=== PATIENT | female | born 1990 | race Caucasian/White ===

== ENCOUNTER 2021-09-24 17:35 | Emergency (ER) | payer SELFPAY ==
[2021-09-24 18:02] VITALS: BP 143/101; PULSE 94; RESP 18; TEMP 36.6; O2SAT 95; BMI 60.2
--- NOTE | 2021-09-24 18:16 | ED.GENADULT ---
HPI - General Adult General Chief complaint: Anxiety Stated complaint: Fear and Paranoia Time Seen by Provider: 09/24/21 17:45 Source: patient Mode of arrival: ambulatory Limitations: no limitations History of Present Illness HPI narrative: 30-year-old transgender patient, female to male, prefers to go by he/his and prefers to be called Tray. Comes in today status post a panic attack. States that he felt all of a sudden very paranoid that he could not trust anything or anybody. He states that this has happened 1 time in the past before. He states that he believes he has missed now 2 doses of his sertraline and likely this is what set it off. He does take clonazepam he took 1 right when this began and when I go into the room to talk to him he states that the clonazepam is kicked in and he feels significantly better. He feels that his anxiety attack is now over and he feels safe to go home and follow up with his therapist tomorrow. He states that he has online therapy that he can access at any time. He feels safe at home. He denies any thoughts of homicide or suicide. He has no other concerns today. He does not believe workup is in order and is requesting discharge. Related Data Home Medications Medication Instructions Recorded Confirmed sertraline 100 mg tablet mg 09/24/21 Allergies Allergy/AdvReac Type Severity Reaction Status Date / Time Sulfa (Sulfonamide Allergy Verified 09/24/21 18:02 Antibiotics) Review of Systems Status of ROS: Reports: 6 or more systems reviewed and unremarkable except as noted in History and below PFSH PFS Social History Smoking Status: Never smoker Do you use any of these nicotine containing products: E-Cigarettes How often do you have a drink containing alcohol: never How often do you have six or more drinks on one occasion: Never AUDIT-C Alcohol total score: 0 Non-prescribed substance use: marijuana (any form) service: No Exam Narrative: Exam Narrative: Overweight, well-developed patient in no acute distress. Alert and oriented. Answers questions appropriately. Mood and affect are appropriate. Thoughts are goal oriented and rational. No tangential or magical thinking noted. Patient speaks in full sentences without needing to catch his breath. HEENT: Normocephalic atraumatic. Pupils are equally round reactive to light. Extraocular muscles are intact. Conjunctivae are moist without any icterus noted. Extremities: Bilateral lower extremities are without edema. Skin: Well perfused without any obvious rashes. Const: Vital Signs, click to edit/add: Vital Signs - 24 hr 09/24/21 18:02 Temperature 97.8 F Pulse Rate [Left P ulse Oximeter] 94 Respiratory Rate 18 Blood Pressure [Ri ght Upper Arm] 143/101 H Pulse Oximetry 95 Course Vital Signs Vital signs: Initial Vital Signs Temperature 97.8 F 09/24/21 18:02 Temperature Source Temporal Artery Scan 09/24/21 18:02 Pulse Rate 94 09/24/21 18:02 Respiratory Rate 18 09/24/21 18:02 Blood Pressure 143/101 H 09/24/21 18:02 Blood Pressure Mean 115 09/24/21 18:02 Blood Pressure Position Sitting 09/24/21 18:02 Pulse Oximetry 95 09/24/21 18:02 Oxygen Delivery Method 09/24/21 18:02 Vital Signs Temperature 97.8 F 09/24/21 18:02 Pulse Rate 94 09/24/21 18:02 Respiratory Rate 18 09/24/21 18:02 Blood Pressure 143/101 H 09/24/21 18:02 Pulse Oximetry 95 09/24/21 18:02 Temperature 97.8 F 09/24/21 18:02 Pulse Rate 94 09/24/21 18:02 Respiratory Rate 18 09/24/21 18:02 Blood Pressure 143/101 H 09/24/21 18:02 Pulse Oximetry 95 09/24/21 18:02 Medical Decision Making MDM Narrative Medical decision making narrative: 30-year-old with anxiety and history of panic attacks. Patient again stated he was feeling significantly better and apologized for wasting our time. Stated that he will follow up with his therapist in the morning and has no other concerns today. Discharge Plan Discharge Clinical Impression: Anxiety, Panic attack Patient Disposition: Home, Self-Care Condition: Improved Additional Instructions: Recommend you follow-up with your therapist and this week. Return to the ER if you are ever feeling unsafe or have thoughts of hurting yourself or others. Prescriptions: No Action sertraline 100 mg tablet 0RF Label Comments: TAKE 2 TABLETS BY MOUTH ONCE DAILY Follow Up/Referrals: Lydia Baez MD [Primary Care Provider] - Stand Alone Forms: [employer] Info Instructions
== END 2021-09-24 18:28 | disposition home or self-care (01) ==
LOC: ED 18:26
PROVIDERS: Emergency Provider Family Medicine; PCP Family Medicine
DX: F41.9 Anxiety disorder, unspecified (principal); F41.0 Panic disorder [episodic paroxysmal anxiety]
CPT/HCPCS: 99282; 99283

== ENCOUNTER 2021-11-13 19:16 | Outpatient (CLI) | payer SELFPAY | END 2021-11-13 19:17 | disposition home or self-care (01) | LOC: AMB 11-29 11:06 | PROVIDERS: PCP Family Medicine; Visit Provider Family Medicine | DX: R07.89 Other chest pain (principal) | CPT/HCPCS: A0425; A0427 ==

== ENCOUNTER 2021-11-13 19:27 | Emergency (ER) | payer SELFPAY ==
[2021-11-13 19:38] VITALS: BP 122/83; PULSE 96; RESP 16; TEMP 35.8; O2SAT 97
--- NOTE | 2021-11-13 20:03 | CRLHL7_ITS ---
For Patients: As a result of the Century Cures Act, medical imaging exams and procedure reports are released immediately into your electronic medical record. You may view this report before your referring provider. If you have questions, please contact your health care provider. INDICATION: Chest pain. TECHNIQUE: Chest 1 views. COMPARISON: Chest x-ray from 04/30/2018. FINDINGS: Lungs: Clear lungs. No consolidation. Pleura: No pleural effusion or pneumothorax. Heart and Mediastinum: The cardiomediastinal silhouette is normal. The vessels are unremarkable. Bones: Unremarkable. IMPRESSION: No acute cardiopulmonary disease. Dictated by Rashid Yang MD @ 11/13/2021 8:51:50 PM (Electronically Signed)
--- NOTE | 2021-11-13 20:19 | ED_ITS ---
HPI - General Adult General Chief complaint: Chest Pain Stated complaint: Chest Pain Time Seen by Provider: 11/13/21 19:55 History of Present Illness HPI narrative: Patient is a 30-year-old woman who presents with substernal chest pain for the past 2 weeks. Symptoms are actually less today. No radiculopathy. No fevers, chills, nausea or diaphoresis. Pain is reproducable with palpation over the mid sternum. Pt has no history of cardiac disease. No aggrevating or aleiviating factors. Pt has no worsening with exertion. No cough. Pain is 4/10 at worst. She has taken no medication for this pain. Related Data Home Medications Medication Instructions Recorded Confirmed sertraline 100 mg tablet 100 mg PO DAILY 09/24/21 11/13/21 Allergies Allergy/AdvReac Type Severity Reaction Status Date / Time Sulfa (Sulfonamide Allergy Verified 11/13/21 19:44 Antibiotics) Review of Systems Status of ROS: Reports: 10 or more systems reviewed and unremarkable except as noted in History and below PFSH PFSH Medical History Asthma Diabetes mellitus type 2, diet-controlled PCOS (polycystic ovarian syndrome) Transgender Social History Smoking Status: Former smoker Do you use any of these nicotine containing products: E-Cigarettes Second hand tobacco smoke exposure: Yes How often do you have a drink containing alcohol: never How often do you have six or more drinks on one occasion: Never AUDIT-C Alcohol total score: 0 Non-prescribed substance use: marijuana (any form) service: No Exam Narrative: Exam Narrative: EXAM GENERAL: Patient appears comfortable and well. Obese. EYES: No scleral icterus. ENT: Tympanic membranes and oropharynx normal. THYROID: no thyroid nodules or thyromegaly. LYMPH: No supraclavicular or cervical lymphadenopathy. SKIN: Visible skin seen during exam normal or with benign process only. EXT: No dependent lower extremity pedal edema. HEART: Regular rate and rhythm with no murmurs, rubs, or gallops. LUNGS: Clear to auscultation bilaterally with no crackles or wheezes. ABD: Soft, non tender, non distended. PSYCH: Good eye contact, speech is not pressured. Const: Vital Signs, click to edit/add: Vital Signs - 24 hr 11/13/21 19:38 11/13/21 20:52 Temperature 96.5 F L Pulse Rate [Left P ulse Oximeter] 96 92 Respiratory Rate 16 16 Blood Pressure [Le ft Upper Arm] 122/83 115/85 Pulse Oximetry 97 96 Oxygen Delivery Me thod Room Air Room Air Course Course Hospital Course: EKG upon my review sinus rhythm no acute ST or T-wave changes. CBC basic metabolic panel D-dimer troponin all pending. Reevaluation(s) Reevaluation #1: Pt feeling well. Troponin, D-dimer, CBC, BMP all unremarkable as is EKG and Portable CXR upon my review. Time: 21:59 Vital Signs Vital signs: Initial Vital Signs Temperature 96.5 F L 11/13/21 19:38 Temperature Source Temporal Artery Scan 11/13/21 19:38 Pulse Rate 96 11/13/21 19:38 Respiratory Rate 16 11/13/21 19:38 Blood Pressure 122/83 11/13/21 19:38 Blood Pressure Mean 96 11/13/21 19:38 Blood Pressure Position Supine 11/13/21 19:38 Pulse Oximetry 97 11/13/21 19:38 Oxygen Delivery Method 11/13/21 19:38 Vital Signs Temperature 96.5 F L 11/13/21 19:38 Pulse Rate 96 11/13/21 19:38 Respiratory Rate 16 11/13/21 19:38 Blood Pressure 122/83 11/13/21 19:38 Pulse Oximetry 97 11/13/21 19:38 Oxygen Delivery Method 11/13/21 19:38 Temperature 96.5 F L 11/13/21 19:38 Pulse Rate 92 11/13/21 20:52 Respiratory Rate 16 11/13/21 20:52 Blood Pressure 115/85 11/13/21 20:52 Pulse Oximetry 96 11/13/21 20:52 Oxygen Delivery Method 11/13/21 20:52 Medical Decision Making [facility] Narrative Medical decision making narrative: Pt presents with several weeks of substernal chest pain. Work up is unremarkable. I did consider a 90 minute troponin but as symptoms have been present for so long and her symptoms are actually better today, I feel that work up is complete. Pt is reassured and will follow a conservative course with Tylenol, Motrin, Ice and PCP follow up. Differential Diagnosis Differential Diagnosis: AL, PE, Costrocondritis, Chest Wall Strain, Pneumonia Lab Data Labs: Lab Results 11/13/21 11/13/21 11/13/21 Range/Units 20:21 20:21 20:21 WBC 10.26 (4.50-11.00) K/uL RBC 5.09 (4.00-5.20) m/uL Hgb 14.0 (12.0-16.0) gm/dL Hct 41.3 (33.0-51.0) % MCV 81 (80-100) fL MCH 28 (26-34) pg MCHC 34 (32-36) gm/dL RDW Coeff of Kaur 12.9 (11.5-15.5) % Plt Count 318 (140-440) K/uL Neut % (Auto) 69.8 (42.0-72.0) % Lymph % (Auto) 23.7 (20-44) % [place] % (Auto) 4.2 (0.0-11.0) % Eos % (Auto) 1.7 (0.0-7.0) % Baso % (Auto) 0.4 (0.0-3.0) % Neut # (Auto) 7.17 H (1.7-7.0) K/uL Lymph # (Auto) 2.43 (0.90-2.90) K/uL [place] # (Auto) 0.40 (0.00-0.90) K/UL Eos # (Auto) 0.17 (0.00-0.50) K/uL Baso # (Auto) 0.04 (0.00-0.30) K/uL Abs Immat Gran (auto) 0.02 (0.00-0.30) K/uL D-Dimer Quant (PE/DVT) 0.32 (0.00-0.50) ug/ml Sodium 137 (135-149) mmol/L Potassium 4.0 (3.6-5.1) mmol/L Chloride 101 (96-114) mmol/L Carbon Dioxide 27 (20-32) mmol/L BUN 11 (5-24) mg/dL Creatinine 0.6 (0.5-1.5) mg/dL Estimated GFR 125 ml/min Glucose 91 (60-115) mg/dL Calcium 9.1 (8.4-10.6) mg/dL Troponin I < 0.01 L (0.01-0.04) ng/mL Discharge Plan Discharge Clinical Impression: Chest pain Condition: Stable Instructions: Chest Wall Pain (ED) Additional Instructions: Tylenol Motrin Ice Follow up with Primary Care Activity Level: No Restrictions Discharge Diet: Regular Prescriptions: No Action sertraline 100 mg tablet 100 mg PO DAILY Label Comments: TAKE 2 TABLETS BY MOUTH ONCE DAILY Follow Up/Referrals: Lydia Baez MD [Primary Care Provider] - Stand Alone Forms: [employer] Info Instructions
[2021-11-13 20:46] LABS: Basophils Absolute Auto 0.04 K/uL (0.00-0.30); Basophils Percent Auto 0.4 % (0.0-3.0); Eosinophils Absolute Auto 0.17 K/uL (0.00-0.50); Eosinophils Percent Auto 1.7 % (0.0-7.0); Hematocrit 41.3 % (33.0-51.0); Immature Granulocytes Abs Auto 0.02 K/uL (0.00-0.30); Lymphocytes Absolute Auto 2.43 K/uL (0.90-2.90); Lymphocytes Percent Auto 23.7 % (20-44); Mean Corpuscular HGB Conc 34 gm/dL (32-36); Mean Corpuscular Hemoglobin 28 pg (26-34); Mean Corpuscular Volume 81 fL (80-100); Monocytes Percent Auto 4.2 % (0.0-11.0); Neutrophils Absolute Auto 7.17 K/uL (1.7-7.0); Neutrophils Percent Auto 69.8 % (42.0-72.0); Platelet Count* 318 K/uL (140-440); RDW Coefficient of Variation % 12.9 % (11.5-15.5); Red Blood Count 5.09 m/uL (4.00-5.20); White Blood Count* 10.26 K/uL (4.50-11.00)
[2021-11-13 20:52] VITALS: BP 115/85; PULSE 92; RESP 16; O2SAT 96
[2021-11-13 20:56] LABS: Slide Review Reflex No
[2021-11-13 21:31] LABS: Chloride* 101 mmol/L (96-114)
[2021-11-13 21:32] LABS: Sodium* 137 mmol/L (135-149)
[2021-11-13 21:34] LABS: Creatinine* 0.6 mg/dL (0.5-1.5); Estimated Glomerular Filt Rate 125 ml/min
[2021-11-13 21:35] LABS: Blood Urea Nitrogen* 11 mg/dL (5-24); Calcium* 9.1 mg/dL (8.4-10.6); Carbon Dioxide* 27 mmol/L (20-32); Glucose* 91 mg/dL (60-115)
[2021-11-13 21:37] LABS: D Dimer Quantitative* 0.32 ug/ml (0.00-0.50)
[2021-11-13 21:47] LABS: Troponin I* < 0.01 ng/mL (0.01-0.04)
== END 2021-11-13 22:10 | disposition home or self-care (01) ==
PROVIDERS: Emergency Provider Internal Medicine; PCP Family Medicine
DX: R07.9 Chest pain, unspecified (principal)
CPT/HCPCS: 36415; 71045; 80048; 84484; 85025; 85379; 93005; 99283; 99284

== ENCOUNTER 2022-01-10 22:09 | Emergency (ER) | payer SELFPAY ==
[2022-01-10 22:34] VITALS: BP 142/95; PULSE 103; RESP 20; TEMP 35.6; O2SAT 96; BMI 60.2
--- NOTE | 2022-01-10 23:31 | CRLHL7_ITS ---
For Patients: As a result of the Cures Act, medical imaging exams and procedure reports are released immediately into your electronic medical record. You may view this report before your referring provider. If you have questions, please contact your health care provider. Indication: Trauma. Technique: Left knee, 3 views. Comparison: November 20, 2019. Findings: Bones: Alignment is normal. No fractures or bone lesions. Joint spaces: Small suprapatellar effusion. [id number] global degenerative changes.. Soft tissues: Unremarkable. Impression: No acute fractures or dislocations. Mild to moderate degenerative changes. Small suprapatellar effusion. Dictated by Sue Hillman MD @ 01/11/2022 12:02:59 AM (Electronically Signed)
--- NOTE | 2022-01-10 23:57 | ED.LOWEXIN ---
HPI - Extremity Injury (Lower) General Chief Complaint: Extremity Pain/Injury, Lower Stated Complaint: hurt lft knee, big toe is numb Time Seen by Provider: 01/10/22 23:26 History of Present Illness HPI Narrative: 31-year-old emergency department with complaint of left knee pain. 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 Stepped this evening sideways, nothing big, and there was a sudden pop feeling like the knee exploded. Is able to bear weight with knee straight but it hurts. Recalls couple years ago injury to the same knee. Reports that there had been some sort of a chip identified in the knee. Was in a knee splint of some sort would hope not do it again; sounds like it might have been a knee immobilizer. Does not describe problems with the knee otherwise. No other injuries sustained. Review of records reveals an injury sustained about 2 years ago to the left knee while squatting at work. MRI report is reviewed as transcribed in orthopedic note IMAGING: MRI of report on the left knee from [facility] dated 12/17/2019 is reviewed. This shows a small full-thickness articular cartilage defect over the posterior aspect of the medial femoral condyle, full-thickness fissuring and delamination of the articular cartilage over the lateral tibial plateau. There is lateral subluxation of the patella. The cruciate and collateral ligaments are normal. Menisci are normal. ASSESSMENT: Flare up of Left knee osteoarthritis Related Data Allergies Allergy/AdvReac Type Severity Reaction Status Date / Time Sulfa (Sulfonamide Allergy Verified 01/10/22 22:37 Antibiotics) Review of Systems Status of ROS: Reports: 6 or more systems reviewed and unremarkable except as noted in History and below PFSH PFSH Medical History Asthma Diabetes mellitus type 2, diet-controlled PCOS (polycystic ovarian syndrome) Transgender Social History Smoking Status: Former smoker Do you use any of these nicotine containing products: E-Cigarettes Second hand tobacco smoke exposure: Yes How often do you have a drink containing alcohol: never How often do you have six or more drinks on one occasion: Never AUDIT-C Alcohol total score: 0 Non-prescribed substance use: marijuana (any form) service: No Exam Narrative: Exam Narrative: Pleasant. Lying flat in bed. Pillow underneath the left leg/knee. At rest is not uncomfortable. There is no apparent effusion but the tenderness most present in the superior medial aspect of patella. Not exactly apprehensive. Moderately uncomfortable to varus stressor of the knee. No laxity to varus or valgus stressors. Negative Angela's. No lower extremity edema otherwise. Const: Vital Signs, click to edit/add: Vital Signs - 24 hr 01/10/22 22:34 Temperature 96.0 F L Pulse Rate [Left P ulse Oximeter] 103 H Respiratory Rate 20 Blood Pressure [Ri ght Forearm] 142/95 H Pulse Oximetry 96 Oxygen Delivery Me thod Room Air Documenting provider has reviewed patient's vital signs: yes Course Course Hospital Course: My read of three-view knee x-ray looks like degenerative changes Impression: No acute fractures or dislocations. Mild to moderate degenerative changes. Small suprapatellar effusion. Reevaluation(s) Reevaluation #1: He did not feel he wanted pain medication. Placed in the immobilizer. Have crutches at home. Vital Signs Vital signs: Initial Vital Signs Temperature 96.0 F L 01/10/22 22:34 Temperature Source Temporal Artery Scan 01/10/22 22:34 Pulse Rate 103 H 01/10/22 22:34 Respiratory Rate 20 01/10/22 22:34 Blood Pressure 142/95 H 01/10/22 22:34 Blood Pressure Mean 110 01/10/22 22:34 Blood Pressure Position Sitting 01/10/22 22:34 Pulse Oximetry 96 01/10/22 22:34 Oxygen Delivery Method 01/10/22 22:34 Vital Signs Temperature 96.0 F L 01/10/22 22:34 Pulse Rate 103 H 01/10/22 22:34 Respiratory Rate 20 01/10/22 22:34 Blood Pressure 142/95 H 01/10/22 22:34 Pulse Oximetry 96 01/10/22 22:34 Oxygen Delivery Method 01/10/22 22:34 Temperature 96.0 F L 01/10/22 22:34 Pulse Rate 103 H 01/10/22 22:34 Respiratory Rate 20 01/10/22 22:34 Blood Pressure 142/95 H 01/10/22 22:34 Pulse Oximetry 96 01/10/22 22:34 Oxygen Delivery Method 01/10/22 22:34 MDM - Extremity Injury (Lower) MDM Narrative Medical decision making narrative: I suspect some degree of patellar subluxation occurred here in the setting of degenerative changes. Medical Records Attestation: I reviewed the patient's medical records. Discharge Plan Discharge Clinical Impression: Subluxation, Anterior knee pain Patient Disposition: Home w/ Parent or Adult Condition: Stable Additional Instructions: Can take ibuprofen or acetaminophen. Alternative to the ibuprofen may be up to 500 mg naproxen 2 times daily. Rest by using the knee immobilizer when up and about. If too uncomfortable go ahead and use your crutches as well. I would dust off those exercises and start doing them again. Ice as discussed to 3 times daily over the next few days. Follow-up if not improved after the weekend. Follow Up/Referrals: Lydia Baez MD [Primary Care Provider] - Stand Alone Forms: [employer] Info Instructions
== END 2022-01-11 00:37 | disposition home or self-care (01) ==
PROVIDERS: Emergency Provider Family Medicine; PCP Family Medicine
DX: S83.192A Other subluxation of left knee, initial encounter (principal)
CPT/HCPCS: 73562; 99283

== ENCOUNTER 2022-03-06 18:03 | Emergency (ER) | payer SELFPAY ==
[2022-03-06 18:16] VITALS: BP 164/104; PULSE 103; RESP 18; TEMP 36.6; O2SAT 97; BMI 57.6
--- NOTE | 2022-03-06 19:21 | ED.NURSE ---
pt signed refusal of services from lobby,
== END 2022-03-06 19:17 | disposition left against medical advice (07) ==
PROVIDERS: Emergency Provider Family Medicine; PCP Family Medicine
DX: Z53.21 Procedure and treatment not carried out due to patient leaving prior to being seen by health care provider (principal)

== ENCOUNTER 2022-06-20 14:45 | Outpatient (CLI) | payer OTHER, SELFPAY ==
[2022-06-20 18:53] LABS: Chlamydia DNA Amplified* NOT DETECTED (No Detected); GC DNA Amplified* NOT DETECTED (No Detected)
== END 2022-06-20 14:46 | disposition home or self-care (01) ==
PROVIDERS: PCP Family Medicine; Visit Provider Registered Nurse
DX: N93.9 Abnormal uterine and vaginal bleeding, unspecified (principal)
CPT/HCPCS: 0353U; 84443; 87491; 87591

== ENCOUNTER 2022-06-22 15:45 | Outpatient (CLI) | payer OTHER, SELFPAY ==
--- NOTE | 2022-06-22 16:00 | CRLHL7_ITS ---
For Patients: As a result of the Century Cures Act, medical imaging exams and procedure reports are released immediately into your electronic medical record. You may view this report before your referring provider. If you have questions, please contact your health care provider. INDICATION: Abnormal uterine bleeding COMPARISON: 11/10/2019 TECHNIQUE: 2D gale scale and color Doppler images were acquired of the pelvis using a transabdominal and transvaginal approach. FINDINGS: Sonographic images demonstrate a normal size and smooth outer contour of the uterus. Uterus measures 7.9 cm in length by 4.2 cm in AP diameter by 4.7 cm in transverse dimension. The myometrium has a normal uniform echotexture. The endometrial lining measures 16 mm in composite thickness. The right ovary is not visualized and the left ovary measures 11.4 x 7.8 x 6.6 cm. The left ovary demonstrates normal arterial and venous blood flow on color Doppler analysis. Large simple left ovarian cyst is present measuring 11.4 x 7.2 x 6.3 cm. There are no suspicious fluid collections within the cul-de-sac. IMPRESSION: Large left ovarian cyst measuring 11.6 cm, increased in size compared to the prior exam when it measured 6.4 cm. Dictated by Maximiliano Spencer MD @ 06/24/2022 12:33:01 PM (Electronically Signed)
== END 2022-06-22 15:46 | disposition home or self-care (01) ==
LOC: US 15:46
PROVIDERS: Visit Provider Registered Nurse
DX: N93.9 Abnormal uterine and vaginal bleeding, unspecified (principal); N83.202 Unspecified ovarian cyst, left side
CPT/HCPCS: 76830; 76856

== ENCOUNTER 2023-05-06 05:38 | Emergency (ER) | payer OTHER, SELFPAY ==
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
--- NOTE | 2023-05-06 05:43 | US_ITS ---
Patient: AJAY MISTRY Facility:?[facility] Patient ID:?[id number] Site Patient ID:?[id number]. Site :?[id number] Study:?US-Pelvis PELVIS TV-05/06/2023 7:08:47 AM Ordering Physician:?NAMAN REYNOLDS Final Report: Indication: Abnormal bleeding Technique: Transvaginal sonographic evaluation of the pelvis was performed. Grayscale and Doppler imaging was acquired. Comparison: 11/10/2019 Findings: The uterus is normal in size measuring 9.6 x 4.4 x 5.2 centimeters. Nabothian cysts are noted in the cervix. The endometrium is prominent at 1.7 centimeters and somewhat heterogeneous in appearance. Follow-up evaluation of the endometrium is recommended due to its size, heterogeneity and the presence of abnormal bleeding. The right ovary is not visualized. No right adnexal mass The left ovary is enlarged measuring 12.4 x 8.9 x 9.0 centimeters. This is almost entirely replaced by a large cyst measuring 12.4 x 9.0 x 8.1 centimeter. This cyst is about twice the size that it was in 2020. There is no evidence of torsion. Due to the risk of rupture and torsion with a lesion of this size, this should undergo follow-up evaluation as well Impression: 1. Prominent heterogeneous endometrium. In the setting of abnormal bleeding, further evaluation of the endometrium is recommended. 2. Left ovarian cyst about twice the size that was in 2020. There is no evidence of torsion at this time. Due to the change in size and the risk of rupture and torsion, follow up evaluation of the left ovary is also recommended. 3. The right ovary is not visible. No right adnexal mass. 4. Incidental nabothian cysts in the cervix. Dictated by Gian Schmitt MD @ 05/06/2023 7:34:01 AM Signed by:?Gian Schmitt MD @05/06/2023 7:34:01 AM (Electronic Signature)
[2023-05-06 05:48] VITALS: BP 170/85; PULSE 105; RESP 22; TEMP 36.7; O2SAT 99; BMI 63.8
[2023-05-06 06:02] VITALS: BP 132/87; PULSE 102; RESP 20; O2SAT 93
[2023-05-06 06:02] LABS: Basophils Percent Auto 0.3 % (0.0-3.0); Eosinophils Percent Auto 1.9 % (0.0-7.0); Hemoglobin* 13.2 gm/dL (12.0-16.0); Immature Granulocytes Pct Auto 0.7 %; Lymphocytes Percent Auto 31.9 % (20-44); Mean Corpuscular HGB Conc 33 gm/dL (32-36); Mean Corpuscular Hemoglobin 27 pg (26-34); Mean Corpuscular Volume 83 fL (80-100); Monocytes Percent Auto 4.7 % (0.0-11.0); Neutrophils Percent Auto 60.5 % (42.0-72.0); Platelet Count* 326 K/uL (140-440); RDW Coefficient of Variation % 13.3 % (11.5-15.5); Red Blood Count 4.82 m/uL (4.00-5.20); White Blood Count* 13.12 K/uL (4.50-11.00)
[2023-05-06 06:05] LABS: Slide Review Reflex No
[2023-05-06 06:15] VITALS: PULSE 100; O2SAT 95
[2023-05-06 06:30] VITALS: PULSE 99; O2SAT 96
[2023-05-06 06:48] LABS: HCG Qualitative Serum* Negative (Negative)
[2023-05-06 07:14] VITALS: BP 141/92
== END 2023-05-06 07:54 | disposition home or self-care (01) ==
PROVIDERS: Emergency Provider Family Medicine
DX: N83.209 Unspecified ovarian cyst, unspecified side (principal); N93.9 Abnormal uterine and vaginal bleeding, unspecified
CPT/HCPCS: 36415; 76830; 84703; 85025; 93976; 99284

== ENCOUNTER 2023-06-28 15:45 | Outpatient (CLI) | payer OTHER, SELFPAY | END 2023-06-28 15:46 | disposition home or self-care (01) | PROVIDERS: Visit Provider Registered Nurse | DX: Z13.220 Encounter for screening for lipoid disorders (principal); R79.89 Other specified abnormal findings of blood chemistry | CPT/HCPCS: 80061; 84270; 84402; 84403; 84450; 84460 ==

== ENCOUNTER 2023-07-30 09:39 | Outpatient (CLI) | payer OTHER, SELFPAY | END 2023-07-30 09:40 | disposition home or self-care (01) | PROVIDERS: PCP Internal Medicine; Visit Provider Internal Medicine | DX: I10 Essential (primary) hypertension (principal); Z13.220 Encounter for screening for lipoid disorders | CPT/HCPCS: 80053; 80061 ==

== ENCOUNTER 2023-09-13 15:41 | Outpatient (CLI) | payer OTHER, SELFPAY | END 2023-09-13 15:42 | disposition home or self-care (01) | PROVIDERS: PCP Internal Medicine; Visit Provider Registered Nurse | DX: F64.9 Gender identity disorder, unspecified (principal); I10 Essential (primary) hypertension; Z78.9 Other specified health status | CPT/HCPCS: 84270; 84402; 84403; 84460 ==

== ENCOUNTER 2023-10-21 19:05 | Emergency (ER) | payer OTHER, SELFPAY ==
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
[2023-10-21 19:17] VITALS: BP 136/77; PULSE 118; RESP 20; TEMP 37; O2SAT 94; BMI 64.7
--- NOTE | 2023-10-21 19:28 | CRLHL7_ITS ---
For Patients: As a result of the Century Cures Act, medical imaging exams and procedure reports are released immediately into your electronic medical record. You may view this report before your referring provider. If you have questions, please contact your health care provider. INDICATION: Lower abdominal pain TECHNIQUE: Abdomen Pelvis radiograph 4 views COMPARISON: None FINDINGS: The sensitivity and specificity of the exam are severely limited by the patient`s body habitus. Bowel: The bowel gas pattern is normal without evidence of bowel obstruction. Soft tissue: No evidence of pneumoperitoneum present. There is a 4 mm calcification in the left pelvis. Bone: Unremarkable for age. IMPRESSION: 1. There is a 4 mm calcification in the left pelvis. This may be a phlebolith but correlation with history and urinalysis are recommended to exclude a distal ureteral stone. Dictated by: Jorge Alonzo MD @ 10/21/2023 20:13:56 (Electronically Signed)
--- NOTE | 2023-10-21 20:16 | ED_ITS ---
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 mg tablet 500 mg PO BID 7 Days Qty: 14 0RF No Action Nexplanon 68 mg implant 1 implant subdermal ONCE Rx Instructions: as a single dose (DME) Aqinject Standard Needle 18 gauge x 1 /2 needle See Rx Instructions .Route Qty: 100 0RF Rx Instructions: As directed (DME) BD Regular Bevel [place] 25 gauge x 5/8 needle See Rx Instructions .Route Qty: 100 0RF Rx Instructions: As directed meloxicam 7.5 mg tablet 7.5 mg PO QDAY Qty: 30 3RF albuterol sulfate 90 mcg/actuation HFA aerosol inhaler 2 puff inhalation Q4-6H PRN (Reason: shortness of breath or wheezing) Qty: 8.5 3RF testosterone cypionate 100 mg/mL oil 50 mg subcut QWEEK Qty: 10 0RF Follow Up/Referrals: Kavin Trejo MD [Primary Care Provider] - Stand Alone Forms: [facility] Info Instructions
[2023-10-21 20:23] VITALS: O2SAT 98
[2023-10-21 20:36] LABS: HCO3 VBG 30 mmol/L (21-28); Lactate* 1.5 mmol/L (0.5-1.9); PCO2 VBG 49 mmHG (40-50); PO2 VBG < 30.1 mmHG (25-47); pH VBG 7.394 (7.32-7.43)
[2023-10-21 20:40] LABS: Basophils Percent Auto 0.2 % (0.0-3.0); Eosinophils Percent Auto 0.5 % (0.0-7.0); Hemoglobin* 12.2 gm/dL (12.0-16.0); Immature Granulocytes Pct Auto 0.3 %; Lymphocytes Percent Auto 11.2 % (20-44); Mean Corpuscular HGB Conc 29 gm/dL (32-36); Mean Corpuscular Hemoglobin 22 pg (26-34); Mean Corpuscular Volume 76 fL (80-100); Monocytes Percent Auto 6.4 % (0.0-11.0); Neutrophils Percent Auto 81.4 % (42.0-72.0); Platelet Count* 347 K/uL (140-440); RDW Coefficient of Variation % 16.3 % (11.5-15.5); Red Blood Count 5.52 m/uL (4.00-5.20); White Blood Count* 17.27 K/uL (4.50-11.00)
[2023-10-21 20:49] LABS: Slide Review Reflex No
--- NOTE | 2023-10-21 20:52 | CRLHL7_ITS ---
For Patients: As a result of the Century Cures Act, medical imaging exams and procedure reports are released immediately into your electronic medical record. You may view this report before your referring provider. If you have questions, please contact your health care provider. Indication: Abdominal pain Technique: CT through the abdomen and pelvis following 149 mL Isovue 370 IV contrast Comparison: CT abdomen pelvis performed 01/08/2019 Findings: Lower chest: No acute abnormality appreciated. Hepatobiliary: No significant parenchymal abnormality is appreciated. Spleen: Mild splenomegaly. Pancreas: No acute abnormality appreciated. Adrenal glands: Increased size of an indeterminate density left adrenal gland lesion measuring 2.2 centimeters, previously 1.3 centimeters. Kidneys: Dusky hypoenhancement of the right greater than left kidneys with perinephric and periureteral stranding. Bowel: No obstruction. No focal perienteric or pericolonic stranding is appreciated. The appendix is visualized and appears unremarkable. Vascular: No acute abnormality appreciated. Lymph nodes: No gross lymphadenopathy. Peritoneum: No free air. No free fluid. : Increased size of a cystic and solid left ovarian/adnexal lesion measuring 12.9 centimeters, previously 7.6 centimeters. Soft tissues: No acute abnormality appreciated. Bones: No acute fracture. No lytic or blastic lesion. Impression: 1. Findings suspicious for bilateral pyelonephritis. 2. Increased size of a cystic and solid left adnexal/ovarian lesion measuring 12.9 centimeters, previously 7.6 centimeters. Ultrasound could be considered if there is clinical suspicion for torsion. Otherwise, gynecologic surgical referral would be recommended. 3. Increased size of an indeterminate density left adrenal gland lesion measuring 2.2 centimeters, previously 1.3 centimeters. Nonemergent outpatient adrenal protocol CT or MRI recommended for further evaluation. Please note that all CT scans at this facility use dose modulation, iterative reconstruction, and/or weight-based dosing when appropriate to reduce radiation dose to as low as reasonably achievable. Dictated by Ramiro Sutherland MD @ 10/21/2023 10:44:59 PM (Electronically Signed)
[2023-10-21 20:55] LABS: Albumin* 4.3 g/dL (3.3-5.0); Chloride* 99 mmol/L (96-114); Sodium* 135 mmol/L (135-149)
[2023-10-21 20:56] LABS: Potassium* 3.9 mmol/L (3.6-5.1)
[2023-10-21 20:58] LABS: Anion Gap 6 mEq/L (7-15); Aspartate Amino Transferase* 19 U/L (12-35); Bilirubin Direct* 0.4 mg/dL (0.0-0.5); Bilirubin Total* 0.8 mg/dL (0.1-1.5); Blood Urea Nitrogen* 7 mg/dL (5-24); Carbon Dioxide* 30 mmol/L (20-32); Creatinine* 0.7 mg/dL (0.5-1.5); Est. Creatinine Clearance* 97.21; Estimated Glomerular Filt Rate 119 ml/min; Total Protein* 8.3 g/dL (6.0-8.3)
[2023-10-21 20:59] LABS: Alanine Aminotransferase* 21 U/L (4-35); Alkaline Phosphatase* 88 U/L (40-150); Glucose* 115 mg/dL (60-115); Lipase* 64 U/L (23-300); Magnesium* 2.2 mg/dL (1.5-2.6)
[2023-10-21 21:06] LABS: Appearance Urine Clear (Clear); Bilirubin Urine Negative (Negative); Blood Urine 3+ (Negative); Color Urine Yellow (Yellow); Glucose Urine Negative (Negative); Ketones Urine Negative (Negative); Leukocyte Esterase Urine 1+ (Negative); Nitrite Urine Negative (Negative); Protein Urine 2+ (Negative); Specific Gravity Urine 1.015 (1.000-1.030)
[2023-10-21 21:48] LABS: Ur HCG Qualitative* Negative (Negative)
[2023-10-21] MEDS: 0.9 % SODIUM CHLORIDE 1000 ml 1,000 ML IV (22:09)
[2023-10-21 22:16] VITALS: BP 129/79; PULSE 120; RESP 18; O2SAT 99
[2023-10-21] MEDS: cefTRIAXone 1 GM in 0.9 % SODIUM CHLORIDE Mini-bag 100 ML IVPB (23:04)
[2023-10-21] MEDS: MORPHINE 2 MG/ML inj IVP (23:08)
== END 2023-10-21 23:43 | disposition home or self-care (01) ==
PROVIDERS: Emergency Provider Family Medicine; PCP Internal Medicine
DX: N12 Tubulo-interstitial nephritis, not specified as acute or chronic (principal); R00.0 Tachycardia, unspecified; N83.202 Unspecified ovarian cyst, left side; E27.9 Disorder of adrenal gland, unspecified
CPT/HCPCS: 36415; 74019; 74177; 80048; 80076; 81001; 81025; 82803; 83605; 83690; 83735; 85025; 86140; 87086; 93005; 94761; 96365; 96375; 99284; 99285; J0696; J2270; J7030; Q9967

== ENCOUNTER 2023-12-12 14:05 | Outpatient (CLI) | payer OTHER, SELFPAY ==
--- NOTE | 2023-12-12 14:30 | MR_ITS ---
[facility] [address] [facility] [address] Phone:?[phone] Fax:?[phone] Referring Physician Information: Kavin Trejo M.D. [address] [facility] [address] Phone:?[phone] Fax:?[phone] Patient:Faby Alvarado D.O.B:?1990 Sex:?Female Phone:?[phone] [facility] MRN:?[id number] Exam Date:?12/12/2023 EXAM: MRI of the LEFT SHOULDER, without contrast CLINICAL: Left shoulder pain and decreased range of motion. COMPARISONS: None available. TECHNICAL: Multiplanar multisequence MRI of the left shoulder was obtained. SEDATION: None. CONTRAST: None. FINDINGS: Evaluation of the obtained sequences is relatively limited by artifact and patient positioning limitations. Rotator cuff: Supraspinatus/Infraspinatus: No evidence of tendinosis, tear or atrophy as visualized. Teres minor: No evidence of tendinosis, tear or atrophy as visualized. Subscapularis: No evidence of tendinosis, tear or atrophy as visualized. Bursae: Subacromial-subdeltoid: No significant bursal fluid. Subcoracoid: No significant bursal fluid. Coracoacromial arch: Acromion morphology: Type I. No os acromiale. Acromiohumeral space: Within normal limits. Coracohumeral space: Within normal limits. Biceps tendon, long head: Evaluation of the intra-articular tendon is significantly limited by positioning and artifact. Imaged proximal extra- articular tendon appears intact. Glenohumeral joint: Physiologic volume of joint fluid. Articular cartilage: Evaluation is significantly limited by artifact. Capsule: No convincing evidence of capsular thickening or injury. Labrum: Not able to be well evaluated due to prominent artifact. Bones: Evaluation is limited by artifact. No evidence of fracture or dislocation as visualized. Acromioclavicular joint: Mild changes of arthrosis. No AC joint injury/widening. IMPRESSION: 1. Evaluation is limited by patient positioning limitations and prominent artifact. No evidence of rotator cuff tear as visualized. 2. Mild AC joint arthrosis. JCZ Electronically signed on 12/13/2023 10:50:00 AM by Santiago Sidhu D.O.
== END 2023-12-12 14:06 | disposition home or self-care (01) ==
LOC: MRI 14:06
PROVIDERS: PCP Internal Medicine; Visit Provider Internal Medicine
DX: M25.512 Pain in left shoulder (principal); M19.012 Primary osteoarthritis, left shoulder
CPT/HCPCS: 73221

== ENCOUNTER 2024-01-15 16:58 | Outpatient (CLI) | payer OTHER, SELFPAY | END 2024-01-15 16:59 | disposition home or self-care (01) | LOC: AMB 01-22 23:48 | PROVIDERS: PCP Internal Medicine; Visit Provider Emergency Medicine | DX: R45.851 Suicidal ideations (principal); F41.9 Anxiety disorder, unspecified | CPT/HCPCS: A0425; A0429 ==

== ENCOUNTER 2024-01-15 17:17 | Emergency (ER) | payer OTHER, SELFPAY ==
[2024-01-15 17:22] VITALS: BP 171/101; PULSE 124; RESP 22; TEMP 36.8; O2SAT 98; BMI 68.6
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
[2024-01-15] MEDS: LORazepam 1 MG TABLET PO (17:49)
== END 2024-01-15 19:02 | disposition home or self-care (01) ==
LOC: ED 18:28
PROVIDERS: Emergency Provider Emergency Medicine Emergency Medical Services; PCP Internal Medicine
DX: F41.9 Anxiety disorder, unspecified (principal)
CPT/HCPCS: 99283; 99284; A9270

== ENCOUNTER 2024-01-17 09:01 | Outpatient (RCR) | payer OTHER, SELFPAY ==
--- NOTE | 2024-01-17 18:37 | PT.OPEX ---
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 States having to push open some heavy rodrigues as part of their work duties. Patient injured the L shoulder at work on Nov 04 reaching around to push the gait. Reports going to the Urgent Care Clinic a few days after the injury. They felt there was some inflammation, give it time to resolve. Patient had ongoing pain, limited use of their L shoulder. Patient followed up with PCP, Dr Trejo. Patient states due to ongoing pain and limited motion, MD recommended a sling for their L UE and an MRI was ordered. MRI showed AC joint issue per patient report. Patient reports having work restrictions but states they continues to do normal work duties to open the gate which needs to be done to perform their normal work duties. Patient takes meloxicam regularly for chronic pain and feels this is also helping the L shoulder pain. Was using ice on occasion but not as much any more. Complains of ongoing pain and limited ROM due to pain. Pain range 0 -9/10. Date of Last Physician Visit 12/18/23 Occupation Patient reports having work restrictions but unable to recall specifics. Patient continues to open the heavy gate as part of their work duties. Precautions Treatment Precautions/Contraindications DM, depression/anxiety, resp issues, PTSD, ASD, obesity Objective Functional Test Performed & Score SPADI pain score 34/50 for 68% . SPADI disability score 57/ 80 for 71%. TOTAL SPADI score 91/130 QuickDASH disability/sx score 57%. QuickDASH work module score 75%. Assessment Assessment/Impression Patient is a 33 year old reporting L shoulder work related injury on Nov 04 with reaching around with L shoulder/UE to open a heavy gate at work. Patient continues to report L shoulder pain, impaired L shoulder ROM , and limited tolerance for lifting/reaching/use of L shoulder/UE secondary to pain. Pain range 0-9/10. Patient takes meloxicam regularly for chronic pain and feels this is also helping decrease L shoulder pain. Patient very protective of any movement of L shoulder. L shoulder AROM initially quite limited with flex to approx 100 degrees. Able to loosen up L shoulder with some exercises including codmans, shoulder rolls, and use of pulleys. L shoulder AROM after loosening up with exercises: flex 135 degrees, scap 130 degrees, IR with L hand to back of L hip, ER with L hand to top of hand. Patient reports pain with all L shoulder motion. L shoulder AAROM on pulleys with 150 degrees flex - equal to R shoulder flex using the paul . Strength testing deferred this session as patient had difficulty with L shoulder AROM. Reviewed MRI results with patient - pulled up from medical record. MRI shows mild AC joint arthrosis. Encouraged patient to get L shoulder moving to help loosen up motion and return to normal function. With encouragement and reassurance, patient was more comfortable moving L shoulder and did well with PT exercises. Patient set up with a HEP. Patient will try to use L shoulder/UE more with daily/work activities as able. Patient would benefit from skilled PT for pain/sx management, improved L shoulder ROM, return to full functional use of L shoulder/UE, and establishment of HEP. Plan of Care Rehabilitation Potential Good Physical Therapy Goals 1. Decrease L shoulder pain to less than/equal to 3/10 with daily/work activities and with the progression of PT activities over the next 4-6 weeks. 2. Return to L shoulder AROM WFL and pain free within 4-6 weeks for return to daily/work activities without flare up of pain. 3. Patient will be educated on posture and body mechanics over the next 4-6 weeks for decreased stress to UBN/shoulder region, improved shoulder mechanics, and decreased shoulder pain. 4. Improve L shoulder strength over the next 6-8 weeks for return to PLF with daily/work activities without flare up of pain. 5. Patient will be I with HEP within 8 weeks for progression toward above goals, ongoing self management of pain/sx, ongoing self improvements in posture/shoulder strength/ mechanics, and for return to PLF with daily/work activities without flare up of pain. Coordination/Communication With Referral Source Treatment Plan/Direct Interventions Manual Therapy,Therapeutic Exercises Frequency/Duration 6-8 visits Patient Will Be Discharged From Therapy Completion of LTG(s),Skills Plateau,Independent w/HEP, Independently Progressing Evaluation Billing Untimed Code Treatment Minutes 25 Complexity Moderate Certification Information Initial Certification Date 01/17/24 Ending Certification Date 04/16/24 Provider Signature Required Yes Provider Signature Shows Agreement With POC & Medical Necessity Physician NPI Number Write NPI# Here Physician Comment/Change : Physician Signature & Date Requested Please Sign/Date Here
== END 2024-05-16 23:59 | disposition home or self-care (01) ==
PROVIDERS: PCP Internal Medicine; Visit Provider Internal Medicine
DX: S49.92XA Unspecified injury of left shoulder and upper arm, initial encounter (principal); M25.512 Pain in left shoulder; M25.612 Stiffness of left shoulder, not elsewhere classified; Z51.89 Encounter for other specified aftercare
CPT/HCPCS: 97110; 97162

== ENCOUNTER 2024-04-10 16:10 | Outpatient (CLI) | payer OTHER, SELFPAY | END 2024-04-10 16:11 | disposition home or self-care (01) | LOC: NFLDREF 16:13 | PROVIDERS: PCP Internal Medicine; Visit Provider Registered Nurse | DX: F64.9 Gender identity disorder, unspecified (principal) | CPT/HCPCS: 84270; 84402; 84403 ==

== ENCOUNTER 2024-06-12 14:45 | Outpatient (RCR) | payer OTHER, SELFPAY ==
--- NOTE | 2024-05-22 14:59 | PT.OPEX ---
PT [place] Outpatient Eval PT [facility] Outpatient Eval Start: 05/15/24 10:48 Freq: Status: Active Protocol: Document 05/22/24 13:57 CRP (Rec: 05/22/24 14:56 CRP [id number]) E-signed By Jordan Ray PT Physical Therapy Outpatient Evaluation Insurance Information Recert Due Date 08/20/24 Insurance Name Ros Medical Diagnosis Back Pain Referring MD Dr Trejo Subjective Preferred Name Tray Subjective About 2 years ago began having L sided LBP. Only discomfort sitting. Can find some positions lying down that calm the pain down. Pain is most painful standing in one place. Within min or two she has severe pain standing. Walking is still an issue by 2 minutes but not as much. Has not been able to exer. At one time it was bad enough she needed to get a wheelchair. Will use the WC if she needs to be out and about a lot without any scooter option being available. No pain into the legs but can get a little shaky. No numbness or tingling. 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 Lower lumbar increased lordosis - Unable to tolerate supine lying Trunk ROM: flex WNL, Ext jerrod dec with L LBP, R SB min dec, L SB mod dec with pain. BIlat rot mod dec. Segmental testing: L SL- hypomob lower lumbar spine and TL junction Functional Test Performed & Score Oswestry 56 Assessment Assessment/Impression Pt presents to the clinic with long standing issues of LBP. Pts signs and sxs are consistent with mechanical LBP characterized by nociceptive pain mechanisms. Pt shows poor tolerance to extension biased functional activity and exer. With this, the pt does show a preference for facet opening activity. Skilled PT is necessary to incorporate ther ex, nm anna, manual therapy and pt education to decrease pain and improve functional mobility. Primary Functional Limitations Standing Walking Recreational activity Exercise ticket sales agent Plan of Care Rehabilitation Potential Good Physical Therapy Goals 1. Pt will be independent with HEP in 8 weeks. 2. Pt will walk for exer x 20 minutes with 75% decrease in pain in 10 weeks. 3. Pt will complete 45 minutes of director of architecture with 75% decrease in pain in 12 weeks. Coordination/Communication With Referral Source Treatment Plan/Direct Interventions Manual Therapy,Neuromuscular Re-ed,Self-Care/Home Management,Therapeutic Activities,Therapeutic Exercises Frequency/Duration 1-2x/wk for 12 weeks Patient Will Be Discharged From Therapy Completion of LTG(s),Skills Plateau,Independent w/HEP, Independently Progressing Evaluation Billing Untimed Code Treatment Minutes 30 Complexity Moderate Certification Information Initial Certification Date 05/22/24 Ending Certification Date 08/20/24 Provider Signature Required Yes Provider Signature Shows Agreement With POC & Medical Necessity Physician NPI Number Write NPI# Here Physician Comment/Change : Physician Signature & Date Requested Please Sign/Date Here
== END 2024-08-20 09:15 | disposition home or self-care (01) ==
PROVIDERS: PCP Internal Medicine; Visit Provider Internal Medicine
DX: M54.9 Dorsalgia, unspecified (principal); Z51.89 Encounter for other specified aftercare
CPT/HCPCS: 97110; 97140; 97162; 97163

== ENCOUNTER 2024-08-16 20:25 | Emergency (ER) | payer OTHER, SELFPAY ==
--- OUTSIDE RECORDS SUMMARY | 2024-08-16 20:26 | XMS_ITS | Encounter Summary ---
Author Organization [place] Address [address] [place] [address] Care Team Providers Care Shipping/Receiving Clerk Name Role Phone Lydia Baez MD Primary Care Provider [phone] Jaylen Kay MD Unavailable Linda Thao RN Unavailable Abel Newby Unavailable Jennifer Quijano MD Unavailable [phone] Encounter Details Date Type Department Care Team (Late st Contact Info) Description 03/18/2020 [facility] [address] [place] [address] Abel Newby Social History Tobacco Use Types Packs/Day Years Used Date Smoking Tobacco: Never Assessed Comments Unknown Sex and Gender Information Value Date Recorded Sex Assigned at Not on file Legal Sex Female 11:40 AM CDT Gender Identity Male 12/05/2017 11:48 AM CDT Sexual Orientation Harman 07/29/2022 4: 07 PM CDT documented as of this encounter Plan of Treatment Not on file documented as of this encounter Visit Diagnoses Not on filedocumented in this encounter Care Teams Shipping/Receiving Clerk Relationship Specialty Start Date End Date Lydia Baez MD [facility] [address] [place] [address] PCP - General 12/05/17 Jaylen Kay MD [address] [place] [address] Plastic Surgery 12/05/17 Linda Thao RN Specialty Desk Monitor Plastic Surgery 08/18/18 Abel Newby Specialty Desk Monitor Plastic Surgery 08/18/18 Jennifer Quijano MD [address] [place] [address] Assigned OBGYN Provider 09/22/22 documented as of this encounter
--- OUTSIDE RECORDS SUMMARY | 2024-08-16 20:26 | XMS_ITS | Clinical Summary ---
Author Organization [facility] Address [address] [place] [address] Care Team Providers Care Business Editor Name Role Phone Pcp, No Primary Care Provider Unavailabl e Allergies Active Allergy Reactions Criticality Noted Date Comments Lactose Stomach Upset 12/25/2014 Gas and bloating Peanut Stomach Upset 12/25/2014 Mild discomfort Ragweed Pollen Edema 06/14/2016 Soap Hives 12/25/2014 Dial soap Wheat Flour Nausea And Vomiting 12/25/2014 Tightness in sternum area Medications Needle, Disp, 27 G 27 gauge x 1/2 ndleIndications: Gender dysphoria in adult As directed 1 unit. for sq administration of injectable medication 100 Each 05/03/19 18 Active Safety Rescue 18 gauge x 1 ndleIndications: Gender dysphoria in adult Use to draw up testosterone 50 Each 1 07/30/19 18 Active syringe accessory (SYRINGE LUER TIP CAP) miscIndications: Gender dysphoria in adult As directed 1 Device. 1mL luer lock syringes 100 Each 01/21/20 18 Active Syringe, Disposable, 1 mL syrgIndications: Gender dysphoria in adult As directed. 100 Syringe 09/11/19 19 Active meloxicam (MOBIC) 7.5 mg tabletIndication s:Mid back pain Take 1 tablet by mouth once daily. 90 tablet 2 07/10/19 20 Active tiZANidine (ZANAFLEX) 2 mg tabletIndication s:Upper back pain Take 1-2 tablets by mouth every 6 hours if needed for Muscle Spasm. 20 tablet 05/01/20 20 Active albuterol HFA (PRO-AIR; VENTOLIN; PROVENTIL) 90 mcg/actuation inhalerIndicatio ns:Mild intermittent reactive airway disease without complication (HC) INHALE 2 PUFFS BY MOUTH EVERY 4 HOURS IF NEEDED. 1 Each 03/14/19 Active albuterol (PROVENTIL) 0.083 % neb solutionIndicati ons:Wheezing Inhale 3 mL via a nebulizer every 4 hours if needed. 2 box 03/14/19 Active LORazepam (ATIVAN) 0.5 mg tabIndications:P anic disorder without agoraphobia with moderate panic attacks Take 1 Tablet (0.5 mg) by mouth once daily if needed for Other (Specify) (panic). 4 tablet. 07/23/19 Active metFORMIN (GLUCOPHAGE XR) 500 mg Extended-Release tabletIndication s:PCOS (polycystic ovarian syndrome) Take 1 Tablet (500 mg) by mouth once daily. 90 tablet. 1 07/23/19 Active EPINEPHrine (EpiPen) 0.3 mg/0.3 mL injectionIndicat ions:Bee sting allergy Inject 0.3 mg intramuscular one time if needed for Allergic Reaction. 2 Each 11 07/23/19 Active sertraline (ZOLOFT) 100 mg tabletIndication s:Moderate episode of recurrent major depressive disorder (HC) Take 2 Tablets (200 mg) by mouth once daily. 180 Tablet 1 12/24/19 Active testosterone cypionate (DEPO-TESTOSTERO NE) 200 mg/mL injectionIndicat ions:Gender dysphoria in adult INJECT 0.3ML (60MG) SUBCUTANEOUS EVERY WEEK. 4 mL 12/24/19 Active blood-glucose meterIndications :New onset type 2 diabetes mellitus (HC) Dispense meter, test strips, lancets covered by pt ins. E11.9 NIDDM type II - Test 2 times/day. Reason: New diabetes 1 Each 12/24/19 Active lancetsIndicatio ns:New onset type 2 diabetes mellitus (HC) Test 2 times per day. 100 Each 12/28/19 Active blood sugar diagnostic (Blood Glucose Test) stripIndications :New onset type 2 diabetes mellitus (HC) Test 2 times per day. 100 Each 12/28/19 Active Active Problems Problem Noted Date Diagnosed Date Prediabetes 07/29/2020 Overview (07/29/2020): A1c 6.0 07/29/20 Controlled substance agreement signed 07/19/2016 Overview (07/19/2016): Signed: 06/14/16 - Dr. Last Otto MD / psychiatry PTSD (post-traumatic stress disorder) 07/20/2015 Moderate single current epis ode of major depressive disorder 07/20/2015 Borderline personality disorder 07/01/2015 Panic disorder without agora phobia with moderate panic attacks 07/01/2015 Immunizations Immunization Administration Dates Next Due COVID-19 vaccine (Moderna 100mcg/0.5mL) PF, MDV 09/12/2020,08/13/2020 HPV 9 (Gardasil 9) 08/24/2016 Influenza, IIV4 12/23/2020, 9,01/20/2018,2016,11/22/2015 Tdap 08/31/2015 Family History Medical History Relation Name Comments Psychiatric illness Mother Thyroid Disease Mother Anesthesia Problem No Family History Blood Disease No Family History Premature CHD (under age 60) No Family History Relation Name Status Comments Father Alive Mother Alive Social History Tobacco Use Types Packs/Day Years Used Date Smoking Tobacco: Former Cigarettes 1 - 12/2015 Smokeless Tobacco: Never Tobacco Cessation:Counseling Given: Yes Comments:e-cig, started E-Cig in 2013 Alcohol Use Standard Drinks/Week Comments No 1 (1 standard drink = 0.6 oz pur e alcohol) PHQ-2 Answer Date Recorded PHQ-2 TOTAL SCORE 2 12/23/2020 Social Connections Answer Date Recorded Frequency of Communication with Friends and Fami ly Not on file 03/11/2021 Financial Resource Strain Answer Date R ecorded Difficulty of Paying Living Expenses Not on file 03/11/2021 Difficulty of Paying Living Expenses Not on file 03/11/2021 Comments No Sex and Gender Information Value Date Recorded Sex Assigned at Female 03/30/2020 5:52 PM SURFACE MOUNT TECHNOLOGY OPERATOR Legal Sex Male 7:08 AM CDT Gender Identity Transgender Male 03/30/2020 5:52 PM SURFACE MOUNT TECHNOLOGY OPERATOR Sexual Orientation Lesbian or Harman 03/30/2020 5: 52 PM SURFACE MOUNT TECHNOLOGY OPERATOR Obstetrics History Para Term AB IAB SAB Ectopic Multiple Livin g Live Births 1 0 0 0 0 0 0 0 0 0 Date Outcome GA Total Labor Labor/2nd/3rd Weight Sex Type Anes PTL Karen A1 A5 Name Clin Last Filed Vital Signs Vital Sign Reading Time Taken Comments Blood Pressure 126/84 12/23/2020 1:26 PM CDT Pulse 106 12/23/2020 1:26 PM CDT Temperature 37.3 C (99.2 F) 08/09/2020 8:50 AM CDT Respiratory Rate 20 07/29/2020 7:47 AM CDT Oxygen Saturation 99% 12/23/2020 1: 26 PM CDT Inhaled Oxygen Concentration - - Weight 154.4 kg (340 lb 6.4 oz) 12/23/2020 1:26 PM CDT Height 161.3 cm (5' 3.5) 06/14/2020 10 :27 AM CDT Body Mass Index 59.35 06/14/2020 10:27 AM CDT Plan of Treatment Health Maintenance Due Date Last Done Comments Hepatitis B series for 19+ (1 of 3 - 19+ 3-dose series) 11/21/2011 BMI (ht and wt on same day) for age 18+ 06/14/2021 06/14/2020, 01/07/2019, 09/10/2018, Additional history exists Depression screening for age 12+ 12/26/2021 12/26/2020, 12/23/2020, 12/16/2019, Additional history exists COVID-19 vaccine series ( season) 2023 09/12/2020, 08/13/2020 Influenza Vaccine (Season Ended) 2024 12/23/2020, 10/28/2018, 01/20/2018, Additional history exists Pap test for age 21-65 06/20/2025 , 06/20/2022, 11/09/2019, Additional history exists Tetanus booster 08/30/2025 08/31/2015 Tdap Completed 08/31/2015, 08/31/2015 Hepatitis C screening for age 18-79 Completed 08/24/2016 HIV for age 15-65 Completed 02/10/2019, 08/24/2016 Pneumococcal series for age 6-49 Aged Out No longer eligible based on patient's age to complete this topic Procedures Procedure Name Priority Date/Time Associated Diagnosis Comments GENERAL MACHINE OPERATOR THIN PREP PAP SCREEN IMAGED Routine 06/20/2022 12:00 PM CDT ANTI HIV 1/2 Routine 02/10/2019 4:29 PM SURFACE MOUNT TECHNOLOGY OPERATOR Gender dysphoria in adult ANTI HCV Routine 08/24/2016 11:45 AM CDT Screening for STD (sexually transmitted disease) from Last 3 Months or Most Recently Relevant to Health Maintenance Results * GENERAL MACHINE OPERATOR THIN PREP PAP SCREEN IMAGED (06/20/2022 12:00 PM CDT) Case Report Gynecologic Cytology Report Case: [id number] Authorizing Provider: Linnea Ibrahim NP Collected: 06/20/2022 1200 Ordering Location: [facility] Received: 06/22/2022 1040 First Screen: Leon Juarez Rescreen: Eliza Fisher Specimen: GENERAL MACHINE OPERATOR ThinPrep Vial Screening, Cervical 07/19/2022 12:54 PM CDT [facility] INTERPRETATION/ RESULT NEGATIVE FOR INTRAEPITHELIAL LESION OR MALIGNANCY (NIL) (none) 07/19/2022 12:54 PM CDT [facility] at 1254 CDT SPECIMEN ADEQUACY Satisfactory for evaluation No endocervical component seen Scant cellularity 07/19/2022 12:54 PM CDT [facility] HPV REQUEST HPV and PAP 07/19/2022 12:54 PM CDT [facility] Date of LMP 06/11/2022 07/19/2022 12:54 PM CDT [facility] Last Pap Date 11/09/2019 07/19/2022 12:54 PM CDT [facility] Last Pap Result NIL 12:54 PM CDT [facility] Abnormal Pap or Carson Bx in last 5 years No 07/19/2022 12:54 PM CDT [facility] Menstrual Status Irregular Periods 07/19/2022 12:[address] [facility] Carson Bx Done Today No 07/19/2022 12:[address] [facility] Additional Information 07/19/2022 12:54 PM CDT [facility] Comment: Interpreted at [facility] - [address], [place] [address] Automated Review Successful 07/19/2022 12:[address] [facility] Comment:Specimen processed s uccessfully by automated pig sticker device, ThinPrep Imaging System, [employer] ANCILLARY TESTING GENERAL MACHINE OPERATOR HPV Ordered, Please see separate report 07/19/2022 12:[address] [facility] Note The pap test is a screening technique, not a diagnostic procedure. It is used primarily to screen for squamous cancers and precursor lesions. Published studies have shown that it is subject to both false negative and false positive results. The pap test should not be used as the sole means to diagnose or exclude pre-malignant and malignant lesions. 07/19/2022 12:[address] [facility] Other (Cervical) 06/20/2022 12:00 PM CDT 06/22/2022 10:40 AM CDT us Linnea Ibrahim NP PATHOLOGY/CYTOLOGY Final Result [facility] [address] [place] [address], [place] * ANTI HIV 1/2 (02/10/2019 4:29 PM SURFACE MOUNT TECHNOLOGY OPERATOR) HIV-1/HIV-2 ANTIBODY Non-Reacti ve Non-Reacti ve 02/11/2019 2:26 PM SURFACE MOUNT TECHNOLOGY OPERATOR [facility] Comment:HIV-1 p24 and HIV-1/ HIV-2 Ab not detected. Blood BLOOD SPECIMEN / Unknown Venipuncture / Unknown 02/10/2019 4:29 PM SURFACE MOUNT TECHNOLOGY OPERATOR 02/10/2019 4:29 PM SURFACE MOUNT TECHNOLOGY OPERATOR us Lydia Baez MD SEND OUTS Final Resul t [facility] [address] [place] [address], * ANTI HCV (08/24/2016 11:45 AM CDT) HEPATITIS C ANTIBODY Non-Reacti ve Non-Reacti ve 08/24/2016 5:46 PM CDT [facility] Blood BLOOD SPECIMEN / Unknown Venipuncture / Unknown 08/24/2016 11:45 AM CDT 08/24/2016 11:45 AM CDT Narrative [facility] - 08/24/2016 5:46 PM CDT Antibodies to HCV not detected; does not exclude the possibility of exposure to HCV. Angella Rodriguez MD SEND OUTS Melissa l Result [facility] [address] [place] [address], from Last 3 Months or Most Recently Relevant to Health Maintenance Insurance [facility] NON-XCEL EMP Care Teams Business Editor Relationship Specialty Start Date End Date Pcp, No . PCP - General 02/15/22
--- OUTSIDE RECORDS SUMMARY | 2024-08-16 20:26 | XMS_ITS | Encounter Summary ---
Author Organization [facility] Address [address] [place] [address] Care Team Providers Care Lead Advisor Name Role Phone Lydia Baez MD Primary Care Provider [phone] Jaylen Kay MD Unavailable Linda Thao RN Unavailable Abel Newby Unavailable Jennifer Quijano MD Unavailable [phone] Encounter Details Date Type Department Care Team (Late st Contact Info) Description 12/16/2019 [facility] Medical Advice Initial Department Abel Newby Social History Tobacco Use Types Packs/Day Years Used Date Smoking Tobacco: Never Assessed Comments Unknown Sex and Gender Information Value Date Recorded Sex Assigned at Not on file Legal Sex Female 11:40 AM CDT Gender Identity Male 12/05/2017 11:48 AM CDT Sexual Orientation Harman 07/29/2022 4: 07 PM CDT COVID-19 Exposure Response Date Recorded In the last month, have you been in contact with someone who was confirmed or suspected to have Coronavirus / COVID-19? No / Unsure 12/09/2019 2:35 PM CDT documented as of this encounter Plan of Treatment Not on file documented as of this encounter Visit Diagnoses Not on filedocumented in this encounter Care Teams Lead Advisor Relationship Specialty Start Date End Date Lydia Baez MD [facility] [address] [place] [address] PCP - General 12/05/17 Jaylen Kay MD [address] [place] [address] Plastic Surgery 12/05/17 Linda Thao RN Specialty System Support Developer Plastic Surgery 08/18/18 Abel Newby Specialty System Support Developer Plastic Surgery 08/18/18 Jennifer Quijano MD [address] [address] Assigned OBGYN Provider 09/22/22 documented as of this encounter
--- OUTSIDE RECORDS SUMMARY | 2024-08-16 20:26 | XMS_ITS | Encounter Summary ---
Author Organization [place] Address [address] [place] [address] Care Team Providers Care Repertoire Manager Name Role Phone Lydia Baez MD Primary Care Provider Jaylen Kay MD Unavailable Linda Thao RN Unavailable Abel Newby Unavailable Jennifer Quijano MD Unavailable [phone] Encounter Details Date Type Department Care Team (Late st Contact Info) Description 03/08/2020 [facility] [address] [place] [address] Abel Newby Social History Tobacco [...] on filedocumented in this encounter Care Teams Repertoire Manager Relationship Specialty Start Date End Date Lydia Baez MD [facility] [address] [place] [address] PCP - General 12/05/17 Jaylen Kay MD [address] [place] [address] Plastic Surgery 12/05/17 Linda Thao, RN Specialty Lathe Scalper Operator Plastic Surgery 08/18/18 Abel Newby Specialty Lathe Scalper Operator Plastic Surgery 08/18/18 Jennifer Quijano MD [address] [place] [address] Assigned OBGYN Provider 09/22/22 documented as of this encounter
--- OUTSIDE RECORDS SUMMARY | 2024-08-16 20:26 | XMS_ITS | Encounter Summary ---
Author Organization [place] Address [address] [place] [address] Care Team Providers Care Mobile Home Technician Name Role Phone Lydia Baez MD Primary Care Provider Jalyen Kay MD Unavailable Linda Thao RN Unavailable Abel Newby Unavailable Jennifer Quijano MD Unavailable [phone] Encounter Details Date Type Department Care Team (Late st Contact Info) Description 09/19/2022 [facility] [address] [place] [address] Eliza Brenner Social History Tobacco Use Types Packs/Day Years Used Date Smoking Tobacco: Never Assessed Comments No Sex and Gender Information Value Date Recorded Sex Assigned at Not on file Legal Sex Female 11:40 AM CDT Gender Identity Male 12/05/2017 11:48 AM CDT Sexual Orientation Harman 07/29/2022 4: 07 PM CDT COVID-19 Exposure Response Date Recorded In the last 10 days, have yo u been in contact with someone who was confirmed or suspected to have Coronavirus/COVID-19? No / Unsure 09/06/2022 9:23 AM CDT documented as of this encounter Plan of Treatment Not on file documented as of this encounter Visit Diagnoses Not on filedocumented in this encounter Care Teams Mobile Home Technician Relationship Specialty Start Date End Date Lydia Baez MD [facility] [address] [place] [address] PCP - General 12/05/17 Jaylen Kay MD [address] [place] [address] Plastic Surgery 12/05/17 Linda Thao RN Specialty Obstetrical Anesthesiologist Plastic Surgery 08/18/18 Abel Newby Specialty Obstetrical Anesthesiologist Plastic Surgery 08/18/18 Jennifer Quijano MD [address] [facility] [address] [place] [address] Assigned OBGYN Provider 09/22/22 documented as of this encounter
--- OUTSIDE RECORDS SUMMARY | 2024-08-16 20:26 | XMS_ITS | Encounter Summary ---
Author Organization [place] Address [address] [place] [address]. [place] [address] Care Team Providers Care Rn Vascular Name Role Phone Lydia Baez MD Primary Care Provider [phone] Jaylen Kay MD Unavailable Linda Thao RN Unavailable Abel Newby Unavailable Jennifer Quijano MD Unavailable [phone] Encounter Details Date Type Department Care Team (Late st Contact Info) Description 12/06/2022 [facility] UR PREOP/PHASE II [facility] [place] [id number] Zeke Lepe Social History Tobacco Use Types Packs/Day Years Used Date Smoking Tobacco: Never Assessed Adolescent Education Answer Date Record ed Getting School Help Needed Not on file 11/30 Comments No Sex and Gender Information Value Date Recorded Sex Assigned at Not on file Legal Sex Female 11:40 AM CDT Gender Identity Male 12/05/2017 11:48 AM CDT Sexual Orientation Harman 07/29/2022 4: 07 PM CDT documented as of this encounter Plan of Treatment Not on file documented as of this encounter Visit Diagnoses Not on filedocumented in this encounter Care Teams Rn Vascular Relationship Specialty Start Date End Date Lydia Baez MD [facility] [address] [place] [address] PCP - General 12/05/17 Jaylen Kay MD [address] [place] [address] Plastic Surgery 12/05/17 Linda Thao, MARCELINO Specialty Hand I Thermal Cutter Plastic Surgery 08/18/18 Abel Newby Specialty Hand I Thermal Cutter Plastic Surgery 08/18/18 Jennifer Quijano MD [address], [place] [address] Assigned OBGYN Provider 09/22/22 documented as of this encounter
--- OUTSIDE RECORDS SUMMARY | 2024-08-16 20:26 | XMS_ITS | Clinical Summary ---
Author Organization [place] Address [address] [place] [address] Care Team Providers Care Threading Machine Operator Name Role Phone Lydia Baez MD Primary Care Provider [phone] Jaylen Kay MD Unavailable Linda Thao RN Unavailable Abel Newby Unavailable Allergies Active Allergy Reactions Criticality Noted Date Comments Flour Nausea and Vomiting,Unknown Low 12/25/2014 Tightness in sternum area Lactose Nausea and Vomiting,Unknown Low 12/25/2014 Gas and bloating Other (Do Not Use) Swelling,Unknown Low 06/14/2016 Soap Hives,Itching Low 12/25/2014 Dial soap Medications Testosterone Cypionate 100 MG/ML SOLN INJECT 0.3ML (60MG) SUBCUTANEOUS EVERY OTHER WEEK. 0 Active albuterol (PROAIR HFA/PROVENTIL HFA/VENTOLIN HFA) 108 (90 Base) MCG/ACT inhaler Inhale 2 puffs into the lungs 0 Active sertraline (ZOLOFT) 100 MG tablet Daily 0 Active Active Problems Problem Noted Date Diagnosed Date Abnormal uterine bleeding (AUB) 09/18/2022 Endometrial thickening on ultrasound 09/18/2022 Gender dysphoria 12/28/2019 Overview (12/28/2019): Added automatically from request for surgery [id number] Controlled substance agreement signed 07/19/2016 Overview (06/16/2018): Overview: Signed: 06/14/16 - Dr. Last Otto MD / psychiatry Moderate single current epis ode of major depressive disorder 07/20/2015 PTSD (post-traumatic stress disorder) 07/20/2015 Borderline personality disorder 07/01/2015 Panic disorder without agora phobia with moderate panic attacks 07/01/2015 Immunizations Immunization Administration Dates Next Due HPV9 (Gardasil) 08/24/2016 Influenza Vaccine >6 months,quad, PF 01/20/2018, 02/12/2017,11/22/2015 TDAP Vaccine (Boostrix) 08/31/2015 Social History Tobacco Use Types Packs/Day Years Used Date Smoking Tobacco: Never Assessed Adolescent Education Answer Date Record ed Getting School Help Needed Not on file 11/30 Comments No Sex and Gender Information Value Date Recorded Sex Assigned at Not on file Legal Sex Female 11:40 AM CDT Gender Identity Male 12/05/2017 11:48 AM CDT Sexual Orientation Harman 07/29/2022 4: 07 PM CDT Last Filed Vital Signs Vital Sign Reading Time Taken Comments Blood Pressure 131/96 09/06/2022 11:04 AM CDT Pulse 108 09/06/2022 11:04 AM CDT Temperature - - Respiratory Rate - - Oxygen Saturation - - Inhaled Oxygen Concentration - - Weight 149.5 kg (329 lb 8 oz) 09/06/2022 11:04 A M CDT Height 157.5 cm (5' 2) 09/06/2022 11:04 AM CDT Body Mass Index 60.27 09/06/2022 11:04 AM CDT Plan of Treatment Health Maintenance Due Date Last Done Comments ADVANCE CARE PLANNING 1992 ANNUAL REVIEW OF HM ORDERS 1992 YEARLY PREVENTIVE VISIT 11/21/1995 HIV SCREENING 11/21/2007 HEPATITIS C SCREENING 2010 HEPATITIS B VACCINE (1 of 3 - 19+ 3-dose series) 11/21/2011 HPV VACCINE (2 - 3-dose series) 09/21/2016 08/24/2016 COVID-19 VACCINE ( - season) 2023 09/12/2020, 08/13/2020 INFLUENZA VACCINE (Season Ended) 2024 12/23/2020, 10/28/2018, 01/20/2018, Additional history exists PAP 06/20/2025 06/20/2022, 06/09, 06/20/2022, Additional history exists DTAP/TDAP/TD VACCINE (2 - Td or Tdap) 08/30/2025 08/31/2015 ZOSTER VACCINE (1 of 2) 2042 MENINGITIS VACCINE Aged Out No longer eligible based on patient's age to complete this topic PNEUMOCOCCAL VACCINE: PEDIATRICS (0 to 5 YEARS) AND AT-RISK PATIENTS (6 to 49 YEARS) Aged Out No longer eligible based on patient's age to complete this topic Procedures Procedure Name Priority Date/Time Associated Diagnosis Comments ABSTRACT PAP (HIM EXTERNAL RESULT) Routine 06/20/2022 12:00 PM CDT from Last 3 Months or Most Recently Relevant to Health Maintenance Results * Abstract PAP (HIM External Result) (06/20/2022 12:00 PM CDT) PAP-ABSTRACT See Scanned Document [facility] Comment:NIL 06/20/2022 12:0 0 PM CDT Narrative [facility] - 06/20/2022 12:00 PM CDT See Care Everywhere-[facility] Provider Outside LAB - HIM EXTERNAL RESULT Final Result [facility] [address] [place] [address], [facility] from Last 3 Months or Most Recently Relevant to Health Maintenance Insurance [facility] [employer] Member Subscriber Plan / Payer (Ef fective for All Dates) Name:Dior Alvarado Relation to Subscriber:Self Name:Dior Alvarado Payer ID:[id number] (NAIC) Group ID:Not on file Type:HMO Address: [address] [place] [id number] [employer] Care Teams Threading Machine Operator Relationship Specialty Start Date End Date Lydia Baez MD [facility] [address] [place] [address] PCP - General 12/05/17 Jaylen Kay MD [address] [place] [address] Plastic Surgery 12/05/17 Linda Thao, RN Specialty Metal Finish Inspector Plastic Surgery 08/18/18 Abel Newby Specialty Metal Finish Inspector Plastic Surgery 08/18/18
--- OUTSIDE RECORDS SUMMARY | 2024-08-16 20:27 | XMS_ITS | Encounter Summary ---
Author Organization [place] Address [address] [place] [address]. [place] [address] Care Team Providers Care Vacuum Caster Name Role Phone Lydia Baez MD Primary Care Provider Jaylen Kay MD Unavailable Linda Thao RN Unavailable Abel Newby Unavailable Jennifer Quijano MD Unavailable + [phone] Encounter Details Date Type Department Care Team (Late st Contact Info) Description 12/18/2022 [facility] Medical Advice UR PREOP/PHASE II [address] [place] [phone] Renetta Martins RN Social History Tobacco Use Types Packs/Day Years [...] on filedocumented in this encounter Care Teams Vacuum Caster Relationship Specialty Start Date End Date Lydia Baez MD [facility] [address] [place] [address] PCP - General 12/05/17 Jaylen Kay MD [address] [place] [address] Plastic Surgery 12/05/17 Linda Thao RN Specialty Terrazzo Worker Plastic Surgery 08/18/18 Abel Newby Specialty Terrazzo Worker Plastic Surgery 08/18/18 Jennifer Quijano MD [address] [address] Assigned OBGYN Provider 09/22/22 documented as of this encounter
--- OUTSIDE RECORDS SUMMARY | 2024-08-16 20:27 | XMS_ITS | Encounter Summary ---
Author Organization [place] Address [facility] [place] [address] Care Team Providers Care Pig Farm Manager Name Role Phone Lydia Baez MD Primary Care Provider Jaylen Kay MD Unavailable Linda Thao RN Unavailable Abel Newby Unavailable Jennifer Quijano MD Unavailable [phone] Encounter Details Date Type Department Care Team (Late st Contact Info) Description 09/21/2022 [facility] Medical Advice [facility] Women's [facility] [address] [place] [address] S 3rd Floor,[address] [facility] [address] [place] [address] Stacia Muller RN Social History Tobacco Use Types Packs/Day [...] on filedocumented in this encounter Care Teams Pig Farm Manager Relationship Specialty Start Date End Date Lydia Baez MD [facility] [address] [place] [address] PCP - General 12/05/17 Jaylen Kay MD [address] [place] [address] Plastic Surgery 12/05/17 Linda Thao RN Specialty Mail Carriers Supervisor Plastic Surgery 08/18/18 Abel Newby Specialty Mail Carriers Supervisor Plastic Surgery 08/18/18 Jennifer Quijano MD [address] [facility] [address] [place] [address] Assigned OBGYN Provider 09/22/22 documented as of this encounter
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
[2024-08-16 20:32] VITALS: BP 133/84; PULSE 98; RESP 20; TEMP 36.4; O2SAT 99; BMI 62.2
[2024-08-16] MEDS: predniSONE 20 MG TABLET 40 MG PO (20:50)
== END 2024-08-16 20:57 | disposition home or self-care (01) ==
LOC: ED 20:56
PROVIDERS: Emergency Provider Family Medicine; PCP Internal Medicine
DX: H93.8X2 Other specified disorders of left ear (principal); T78.49XA Other allergy, initial encounter
CPT/HCPCS: 99283; 99284; J7512

== ENCOUNTER 2024-09-17 19:07 | Emergency (ER) | payer OTHER, SELFPAY ==
--- OUTSIDE RECORDS SUMMARY | 2024-09-17 19:09 | XMS_ITS | Encounter Summary ---
Author Organization [facility] Address [address] [place] [address] Care Team Providers Care Pot Builder Name Role Phone Lydia Baez MD Primary Care Provider [phone] Jaylen Kay MD Unavailable Linda Thao RN Unavailable Abel Newby Unavailable Jennifer Quijano MD Unavailable [phone] Encounter Details Date Type Department Care Team (Late st Contact Info) Description 09/19/2022 [facility] Medical [facility] [address] [place] [address] Eliza Brenner Social History Tobacco [...] on filedocumented in this encounter Care Teams Pot Builder Relationship Specialty Start Date End Date Lydia Baez MD [facility] [address] [place] [address] PCP - General 12/05/17 Jaylen Kay MD [address] [place] [address] Plastic Surgery 12/05/17 Linda Thao RN Specialty Graphotype Operator Plastic Surgery 08/18/18 Abel Newby Specialty Graphotype Operator Plastic Surgery 08/18/18 Jennifer Quijano MD [address] [facility] [address] [place] [address] Assigned OBGYN Provider 09/22/22 documented as of this encounter
--- OUTSIDE RECORDS SUMMARY | 2024-09-17 19:09 | XMS_ITS | Encounter Summary ---
Author Organization [facility] Address [address] [place] [address] Care Team Providers Care Fisher Diver Net Name Role Phone Lydia Baez MD Primary Care Provider Jaylen Kay MD Unavailable Linda Thao RN Unavailable Abel Newby Unavailable Jennifer Quijano MD Unavailable [phone] Encounter Details Date Type Department Care Team (Late st Contact Info) Description 03/18/2020 [facility] [address] [place] [address] Abel Newby Social History Tobacco [...] on filedocumented in this encounter Care Teams Fisher Diver Net Relationship Specialty Start Date End Date Lydia Baez MD [facility] [address] [place] [address] PCP - General 12/05/17 Jaylen Kay MD [address] [place] [address] Plastic Surgery 12/05/17 Linda Thao RN Specialty Staff Toxicologist Plastic Surgery 08/18/18 Abel Newby Specialty Staff Toxicologist Plastic Surgery 08/18/18 Jennifer Quijano MD [address] [place] [address] Assigned OBGYN Provider 09/22/22 documented as of this encounter
--- OUTSIDE RECORDS SUMMARY | 2024-09-17 19:09 | XMS_ITS | Encounter Summary ---
Author Organization [place] Address [address] [place] [address]. [place] [address] Care Team Providers Care Glass Glazier Name Role Phone Lydia Baez MD Primary Care Provider Jaylen Kay MD Unavailable Linda Thao RN Unavailable Abel Newby Unavailable Jennifer Quijano MD Unavailable + [phone] Encounter Details Date Type Department Care Team (Late st Contact Info) Description 12/18/2022 My[facility] Medical Advice UR PREOP/PHASE II [address] [place] [phone] Renetta Martins RN Social History Tobacco Use [...] on filedocumented in this encounter Care Teams Glass Glazier Relationship Specialty Start Date End Date Lydia Baez MD [facility] [address] [place] [address] PCP - General 12/05/17 Jaylen Kay MD [address] [place] [address] Plastic Surgery 12/05/17 Linda Thao RN Specialty Core Microarchitect Plastic Surgery 08/18/18 Abel Newby Specialty Core Microarchitect Plastic Surgery 08/18/18 Jennifer Quijano MD [address], [place] [address] Assigned OBGYN Provider 09/22/22 documented as of this encounter
--- OUTSIDE RECORDS SUMMARY | 2024-09-17 19:09 | XMS_ITS | Encounter Summary ---
Author Organization [place] Address [address] [place] [address] Care Team Providers Care Balance Recesser Name Role Phone Lydia Baez MD Primary Care Provider [phone] Jaylen Kay MD Unavailable Linda Thao RN Unavailable Abel Newby Unavailable Jennifer Quijano MD Unavailable [phone] Encounter Details Date Type Department Care Team [...] on filedocumented in this encounter Care Teams Balance Recesser Relationship Specialty Start Date End Date Lydia Baez MD [facility] [address] [place] [address] PCP - General 12/05/17 Jaylen Kay MD [address] [place] [address] Plastic Surgery 12/05/17 Linda Thao RN Specialty Lock Maintenance Supervisor Plastic Surgery 08/18/18 Abel Newby Specialty Lock Maintenance Supervisor Plastic Surgery 08/18/18 Jennifer Quijano MD [address] [address] Assigned OBGYN Provider 09/22/22 documented as of this encounter
--- OUTSIDE RECORDS SUMMARY | 2024-09-17 19:09 | XMS_ITS | Encounter Summary ---
Author Organization [place] Address [facility] [place] [address] Care Team Providers Care Fraternity Adviser Name Role Phone Lydia Baez MD Primary Care Provider [phone] Jaylen Kay MD Unavailable Linda Thao RN Unavailable Abel Newby Unavailable Jennifer Quijano MD Unavailable [phone] Encounter Details Date Type Department Care Team (Late st Contact Info) Description 09/21/2022 [facility] Adv[facility] Women's [facility] [address] [place] [address] [address] 3rd Floor,[address] [facility] [address] [place] [address] Stacia Muller RN Social History [...] on filedocumented in this encounter Care Teams Fraternity Adviser Relationship Specialty Start Date End Date Lydia Baez MD [facility] [address] [place] [address] PCP - General 12/05/17 Jaylen Kay MD [address] [place] [address] Plastic Surgery 12/05/17 Linda hTao RN Specialty Plant Protection Guard Plastic Surgery 08/18/18 Abel Newby Specialty Plant Protection Guard Plastic Surgery 08/18/18 Jennifer Quijano MD [address] [facility] [address] [place] [address] Assigned OBGYN Provider 09/22/22 documented as of this encounter
--- OUTSIDE RECORDS SUMMARY | 2024-09-17 19:09 | XMS_ITS | Clinical Summary ---
Author Organization [facility] Address [address] [place] [address] Care Team Providers Care Textile Pin Worker Name Role Phone Lydia Baez MD Primary Care Provider [phone] Jaylen Kay MD Unavailable Linda Thao RN [...] (12/28/2019): Added automatically from request for surgery [id number] Controlled substance agreement signed 07/19/2016 Overview (06/16/2018): [...] - season) 2023 09/12/2020, 08/13/2020 INFLUENZA VACCINE (#1) 2024 , 10/28/2018, 01/20/2018, Additional history exists PAP 06/20/2025 [...] 12:00 PM CDT) PAP-ABSTRACT See Scanned Document [facility] Comment:NIL 06/20/2022 12:0 0 PM CDT Narrative [facility] - 06/20/2022 12:00 PM CDT See Care Everywhere-[facility] Provider Outside LAB - HIM EXTERNAL RESULT Final Result [facility] [address] [place] [address], [facility] from Last 3 Months or Most Recently Relevant to Health Maintenance Insurance [facility] [employer] Member Subscriber Plan / Payer (Ef fective for All Dates) Name:Dior Alvarado Relation to Subscriber:Self Name:Dior Alvarado Payer ID:[id number] (NAIC) Group ID:Not on file Type:HMO Address: [address] [place] [phone] [employer] Care Teams Textile Pin Worker Relationship Specialty Start Date End Date Lydia Baez MD [facility] [address] [place] [address] PCP - General 12/05/17 Jaylen Kay MD [address] [place] [address] Plastic Surgery 12/05/17 Linda Thao, RN Specialty Oil Inspector Plastic Surgery 08/18/18 Abel Newby Specialty Oil Inspector Plastic Surgery 08/18/18
--- OUTSIDE RECORDS SUMMARY | 2024-09-17 19:09 | XMS_ITS | Encounter Summary ---
Author Organization [facility] Address [address] [place] [address] Care Team Providers Care Fashion Design Professor Name Role Phone Lydia Baez MD Primary Care Provider Jaylen Kay MD Unavailable Linda Thao RN Unavailable Abel Newby Unavailable Jennifer Quijano MD Unavailable [phone] Encounter Details Date Type Department Care Team (Late st Contact Info) Description 03/08/2020 [facility]astic [facility] Clinic [address]th [place] [address] Abel Newby Social History Tobacco [...] on filedocumented in this encounter Care Teams Fashion Design Professor Relationship Specialty Start Date End Date Lydia Baez MD [facility] [address] [place] [address] PCP - General 12/05/17 Jaylen Kay MD [address] [place] [address] Plastic Surgery 12/05/17 Linda Thao, RN Specialty Production Proofreader Plastic Surgery 08/18/18 Abel Newby Specialty Production Proofreader Plastic Surgery 08/18/18 Jennifer Quijano MD [address] [place] [address] Assigned OBGYN Provider 09/22/22 documented as of this encounter
--- OUTSIDE RECORDS SUMMARY | 2024-09-17 19:09 | XMS_ITS | Encounter Summary ---
Author Organization [place] Address [address] [place] [address]. [place] [address] Care Team Providers Care Manager Star Name Role Phone Lydia Baez MD Primary Care Provider [phone] Jaylen Kay MD Unavailable Linda Thao RN Unavailable Abel Newby Unavailable Jennifer Quijano MD Unavailable + [phone] Encounter Details Date Type Department Care Team (Late st Contact Info) Description 12/06/2022 [facility] Advice UR PREOP/PHASE II [facility]0 [place] [address] Zeke Lepe Social History Tobacco Use Types [...] on filedocumented in this encounter Care Teams Manager Star Relationship Specialty Start Date End Date Lydia Baez MD [facility] [address] [place] [address] PCP - General 12/05/17 Jaylen Kay MD [address] [place] [address] Plastic Surgery 12/05/17 Linda Thao, MARCELINO Specialty Campaign Specialist Plastic Surgery 08/18/18 Abel Newby Specialty Campaign Specialist Plastic Surgery 08/18/18 Jennifer Quijano MD [address], [place] [address] Assigned OBGYN Provider 09/22/22 documented as of this encounter
[2024-09-17 19:14] VITALS: BP 151/104; PULSE 98; RESP 16; TEMP 36.5; O2SAT 98; BMI 62.9
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
== END 2024-09-17 20:00 | disposition home or self-care (01) ==
LOC: ED 19:50
PROVIDERS: Emergency Provider Family Medicine; PCP Internal Medicine
DX: H66.91 Otitis media, unspecified, right ear (principal); Z79.899 Other long term (current) drug therapy
CPT/HCPCS: 96372; 99283; 99284; J1885

== ENCOUNTER 2025-02-09 14:33 | Outpatient (CLI) | payer OTHER, SELFPAY | END 2025-02-09 14:34 | disposition home or self-care (01) | LOC: NFLDREF 14:34 | PROVIDERS: PCP Internal Medicine; Visit Provider Registered Nurse | DX: Z78.9 Other specified health status (principal) | CPT/HCPCS: 84270; 84402; 84403 ==